=== PATIENT | female | born 1950 | race Caucasian/White ===

== ENCOUNTER → 2018-05-14 | Outpatient (CLI) | payer MEDICARE, OTHER ==
--- NOTE | 2018-05-14 15:24 | XR ---
EXAMINATION TYPE: XR abdomen 1V DATE OF EXAM: 05/14/2018 COMPARISON: NONE HISTORY: Pain TECHNIQUE: One view abdominal series FINDINGS: The osseous structures are intact. The bowel gas pattern is nonspecific. There is a calculus overlyi ng the left kidney measuring approximately 7 mm. Tiny punctate adjacent to millimeter calcification n oted. Vascular calcifications are seen and arthropathy of the hips and hypertrophic change of the spine. IMPRESSION: 1. Left-sided nephrolithiasis.
== END | disposition home or self-care (01) ==
LOC: RADXRMAIN 14:07
PROVIDERS: ATTEND Urology
DX: N20.0 Calculus of kidney (principal)
CPT/HCPCS: 74018